=== PATIENT | female | born 1995 | race Caucasian/White ===

== ENCOUNTER 2021-06-30 16:32 | Emergency (ER) | payer OTHER ==
[~2021-06-30] VITALS: Ht 160 cm; Wt 75.0 kg
[2021-06-30 16:44] VITALS: TEMP 97.2
[2021-06-30] MEDS ORDERED: WELLBUTRIN XL150 MG PO (17:27)
[2021-06-30] MEDS ORDERED: PRENATAL TABLET PO (17:28)
[2021-06-30] MEDS ORDERED: ZOFRAN ODT8 MG PO (17:28)
[2021-06-30 17:37] LABS: BASO % 0.2 % (0.0-2.0); EOS % 0.4 % (0.0-4.0); GRAN # 6.1 K/mm3 (1.4-6.5); GRAN % 72.8 % (42.2-75.2); HEMATOCRIT 37.7 % (37.0-47.0); HEMOGLOBIN 13.3 g/dl (12.5-16.0); LYMPH # 1.9 K/mm3 (1.2-3.4); LYMPH % 22.4 % (20.0-51.0); MEAN CELL VOLUME 87 fl (80.0-100.0); MEAN CORPUSCULAR HEMOGLOBIN 31 pg (27-31); MEAN CORPUSCULAR HGB CONC 35 g/dl (33.0-37.0); MEAN PLATELET VOLUME 10.5 fl (7.4-10.4); MONO # 0.3 K/mm3 (0.1-0.6); PLATELET COUNT 188 K/mm3 (130-400); RED BLOOD COUNT 4.36 M/mm3 (4.10-5.30); REDCELL DISTRIBUTION WIDTH-CV 12.5 % (11.5-14.5)
[2021-06-30] MEDS ORDERED: CALCIUM 600MG+D1 TAB PO (17:39)
[2021-06-30 17:58] LABS: ALBUMIN 3.9 gm/dL (3.5-5.0); BILIRUBIN,TOTAL 0.5 mg/dL (0.2-1.2); CALCIUM 8.6 mg/dL (8.4-10.2); CREATININE, serum 0.64 mg/dL (0.57-1.11); POTASSIUM 3.6 mmol/L (3.5-4.5); TOTAL PROTEIN 6.8 gm/dL (6.2-8.1)
[2021-06-30 18:11] LABS: COLLECTION METHOD CLEAN CATCH
[2021-06-30 18:21] LABS: MUCOUS Present (NOT PRESENT); PH 6 (5-8); URINE APPEARANCE Hazy (CLEAR/HAZY); URINE BACTERIA Occasional /hpf (NONE SEEN); URINE BILIRUBIN Negative (NEGATIVE); URINE BLOOD Negative (NEGATIVE); URINE COLOR Yellow (YELLOW); URINE GLUCOSE Negative (NEGATIVE); URINE KETONE 2+ (NEGATIVE); URINE LEUKOCYTE ESTERASE Trace (NEGATIVE); URINE NITRATE Negative (NEGATIVE); URINE PROTEIN(semi-quant) Negative (NEGATIVE); URINE RBC 0-2 /hpf (0-2); URINE UROBILINOGEN Negative (NEGATIVE)
[2021-06-30 18:52] VITALS: BP 128/74; PULSE 83
== END 2021-06-30 18:51 | disposition home or self-care (01) ==
LOC: COL.ER 16:32
PROVIDERS: Nurse Practitioner Primary Care
DX: O21.9 Vomiting of pregnancy, unspecified (principal); Z3A.13 13 weeks gestation of pregnancy
CPT/HCPCS: J2550; J7030

== ENCOUNTER 2022-04-19 04:52 | Emergency (ER) | payer OTHER ==
[~2022-04-19] VITALS: Ht 160 cm; Wt 84.1 kg
[~2022-04-19 04:52] MED LIST: CALCIUM 600MG+D1 TAB PO; IBU800 M1 PO; NORMODYNE200 MG PO; PERCOCET 325 MG1 TA2 PO; PRENATAL TABLET PO; PRILOTC; TYLENOL 500MG500 MG PO; WELLBUTRIN XL150 MG PO; ZOFRAN ODT8 MG PO
[2022-04-19 06:32] LABS: STREP SCREEN NEGATIVE
[2022-04-19] MEDS ORDERED: AMOXICILLIN 8751 TAB PO (07:18)
[2022-04-19 07:34] VITALS: BP 119/90; PULSE 87; TEMP 98.8
== END 2022-04-19 07:37 | disposition home or self-care (01) ==
LOC: COL.ER 04:52
PROVIDERS: Emergency Medicine
DX: H66.92 Otitis media, unspecified, left ear (principal); J02.9 Acute pharyngitis, unspecified; M79.10 Myalgia, unspecified site; Z98.890 Other specified postprocedural states; Z20.822 Contact with and (suspected) exposure to COVID-19

== ENCOUNTER 2023-03-01 17:59 | Emergency (ER) | payer OTHER ==
[~2023-03-01] VITALS: Ht 157.5 cm; Wt 100.9 kg
[~2023-03-01 17:59] MED LIST changes: +AMOXICILLIN 8751 TAB PO; +ZOFRAN 4MG T4 MG/TAB PO
[2023-03-01 18:05] VITALS: TEMP 98.1
[2023-03-01 18:48] LABS: BASO # 0.1 K/mm3 (0.0-0.2); BASO % 0.6 % (0.0-2.0); EOS # 0.1 K/mm3 (0.0-0.7); EOS % 1.1 % (0.0-4.0); GRAN # 5.5 K/mm3 (1.4-6.5); GRAN % 61.1 % (42.2-75.2); HEMOGLOBIN 12.4 g/dl (12.5-16.0); LYMPH # 2.7 K/mm3 (1.2-3.4); LYMPH % 29.6 % (20.0-51.0); MEAN CELL VOLUME 92 fl (80.0-100.0); MEAN CORPUSCULAR HEMOGLOBIN 31 pg (27-31); MEAN CORPUSCULAR HGB CONC 34 g/dl (33.0-37.0); MEAN PLATELET VOLUME 9.8 fl (7.4-10.4); MONO # 0.6 K/mm3 (0.1-0.6); MONO % 6.9 % (1.7-9.3); PLATELET COUNT 179 K/mm3 (130-400); RED BLOOD COUNT 3.99 M/mm3 (4.10-5.30); REDCELL DISTRIBUTION WIDTH-CV 13.4 % (11.5-14.5)
[2023-03-01 18:50] LABS: HEMATOCRIT 36.5 % (37.0-47.0)
[2023-03-01 19:15] LABS: ALANINE AMINOTRANSFERASE 10 U/L (0-55); ALBUMIN 2.9 gm/dL (3.5-5.0); ALKALINE PHOSPHATASE 65 U/L (40-150); ANION GAP 11 mmol/L (7-16); AST,SGOT 16 U/L (5-34); BILIRUBIN,TOTAL 0.3 mg/dL (0.2-1.2); BLOOD UREA NITROGEN 7 mg/dL (7-19); CALCIUM 8.6 mg/dL (8.4-10.2); CARBON DIOXIDE 18 mmol/L (22-29); CHLORIDE 110 mmol/L (98-107); GLUCOSE 84 mg/dL (70-99); POTASSIUM 3.9 mmol/L (3.5-4.5); SODIUM 139 mmol/L (136-145); TOTAL PROTEIN 6.2 gm/dL (6.2-8.1)
[2023-03-01 19:24] LABS: TROPONIN-I < 0.010 ng/mL (0.00-0.033)
[2023-03-01 19:35] LABS: COLLECTION METHOD CLEAN CATCH
[2023-03-01 20:21] LABS: SQUAMOUS EPITHELIAL 0-2 /hpf (0-10); URINE APPEARANCE Clear (CLEAR/HAZY); URINE BACTERIA None Seen /hpf (NONE SEEN); URINE BLOOD Negative (NEGATIVE); URINE COLOR Yellow (YELLOW); URINE GLUCOSE Negative (NEGATIVE); URINE KETONE Negative (NEGATIVE); URINE NITRATE Negative (NEGATIVE); URINE PROTEIN(semi-quant) Negative (NEGATIVE); URINE RBC 0-2 /hpf (0-2); URINE UROBILINOGEN 0.2 E.U/dL (0.2-1.0)
[2023-03-01 20:33] VITALS: BP 158/88; PULSE 76
== END 2023-03-01 20:33 | disposition home or self-care (01) ==
LOC: COL.ER 17:59
PROVIDERS: Physician Assistant
DX: O16.2 Unspecified maternal hypertension, second trimester (principal); O26.892 Other specified pregnancy related conditions, second trimester; R00.2 Palpitations; Z3A.26 26 weeks gestation of pregnancy
CPT/HCPCS: J2405; J7030

== ENCOUNTER 2023-04-04 20:30 | Outpatient (CLI) | payer OTHER ==
[~2023-04-04] VITALS: Ht 160 cm; Wt 101.4 kg
--- NOTE | 2023-04-04 19:30 | NUR ---
G2L1 at 31 weeks and 4 days arrives to unit ambulatory after falling at home and hitting her head. Pt reports falling straight backwards and hitting her head hard on her hardwood floors. Pt appears to be in pain and is guarding her eyes. Pt denies contractions, loss of fluid, or vaginal bleeding. Reports movement but wants to ensure baby is ok after fall. Clean gown on, bed in low and locked position, call light within reach. US and toco explained and applied. Admission assessment started. Vitals obtained.
[2023-04-04 20:00] VITALS: BP 144/89; PULSE 87
[~2023-04-04 20:30] MED LIST changes: +LR 1,000 ML IV PRN
[2023-04-04 20:40] VITALS: BP 127/72; PULSE 86; TEMP 98.2
--- NOTE | 2023-04-04 21:00 | NUR ---
Category 1 FHR tracing obtained. No contractions on monitor and patient reports no abdominal pain. Positive movement. Recommended patient return to ER to be evaluated. Discharge instructions reviewed, pt verbalized understanding.
== END 2023-04-04 21:00 | disposition home or self-care (01) ==
LOC: LDRO 20:30 → LDR 20:30 → LDRO 21:00
DX: O9A.213 Injury, poisoning and certain other consequences of external causes complicating pregnancy, third trimester (principal); Z3A.31 31 weeks gestation of pregnancy
CPT/HCPCS: OP

== ENCOUNTER 2023-04-11 07:57 | Emergency (ER) | payer OTHER ==
[~2023-04-11] VITALS: Ht 160 cm; Wt 104.5 kg
[~2023-04-11 07:57] MED LIST changes: -LR 1,000 ML IV PRN
[2023-04-11] MEDS ORDERED: NS 1,000 ML IV ONE ×2 (08:30→10:00)
[2023-04-11] MEDS ORDERED: Ondansetron 4 MG/2 ML VIAL IV ONE (08:30)
[2023-04-11 08:35] LABS: BASO # 0.1 K/mm3 (0.0-0.2); BASO % 0.3 % (0.0-2.0); EOS # 0.1 K/mm3 (0.0-0.7); EOS % 0.3 % (0.0-4.0); GRAN # 15.7 K/mm3 (1.4-6.5); GRAN % 86.1 % (42.2-75.2); HEMATOCRIT 38.6 % (37.0-47.0); HEMOGLOBIN 13.4 g/dl (12.5-16.0); LYMPH # 1.5 K/mm3 (1.2-3.4); LYMPH % 8.3 % (20.0-51.0); MEAN CELL VOLUME 90 fl (80.0-100.0); MEAN CORPUSCULAR HEMOGLOBIN 31 pg (27-31); MEAN CORPUSCULAR HGB CONC 35 g/dl (33.0-37.0); MEAN PLATELET VOLUME 9.9 fl (7.4-10.4); MONO # 0.8 K/mm3 (0.1-0.6); MONO % 4.4 % (1.7-9.3); PLATELET COUNT 169 K/mm3 (130-400); RED BLOOD COUNT 4.28 M/mm3 (4.10-5.30); REDCELL DISTRIBUTION WIDTH-CV 13.6 % (11.5-14.5)
[2023-04-11 08:43] LABS: COLLECTION METHOD CLEAN CATCH
[2023-04-11 08:50] LABS: BILIRUBIN,TOTAL 0.5 mg/dL (0.2-1.2); CALCIUM 8.8 mg/dL (8.4-10.2); CREATININE, serum 0.65 mg/dL (0.57-1.11); POTASSIUM 3.8 mmol/L (3.5-4.5)
[2023-04-11 09:07] LABS: URINE COLOR Yellow (YELLOW)
[2023-04-11 09:08] LABS: PH 6.5 (5.0-8.5); URINE APPEARANCE Hazy (CLEAR/HAZY); URINE BLOOD Negative (NEGATIVE); URINE GLUCOSE Negative (NEGATIVE); URINE KETONE 4+ (NEGATIVE); URINE NITRATE Negative (NEGATIVE); URINE PROTEIN(semi-quant) 1+ (NEGATIVE); URINE RBC None Seen /hpf (0-2); URINE UROBILINOGEN 0.2 E.U/dL (0.2-1.0)
[2023-04-11 09:09] LABS: URINE BACTERIA Moderate /hpf (NONE SEEN)
[2023-04-11 10:00] VITALS: TEMP 99.9
[2023-04-11] MEDS ORDERED: Acetaminophen 500 MG TAB PO ONE (10:00)
[2023-04-11] MEDS ORDERED: Amoxicillin/Clavulanate K+ 875/125 MG TAB PO ONE (10:00)
[2023-04-11 10:38] LABS: INR 1.1 (0.8-3.0); PROTHROMBIN TIME 12.1 SECONDS (9.7-12.8)
[2023-04-11 10:39] LABS: PARTIAL THROMBOPLASTIN TIME 29.3 SECONDS (26.0-37.0)
--- NOTE | 2023-04-11 11:38 | NUR ---
PT TO ER FOR N/V. NST DONE FROM 1010 TO 1035. PT DID NOT HAVE TWO ACCELS IN FHT IN A 20 STRIP. REPEATED NST AT 1109, GAVE PT APPLE JUICE AND BEGAN PLAYING MUSIC TO ELISIT RESPONCE FROM FETUS. FETUS RESPONDED WITH MULTIPLE ACCELS.
[2023-04-11 12:15] VITALS: BP 129/74; PULSE 113
[2023-04-11] MEDS ORDERED: AMOXICILLIN 8751 TAB PO (12:18)
== END 2023-04-11 12:29 | disposition home or self-care (01) ==
LOC: COL.ER 07:57
PROVIDERS: Emergency Medicine
DX: O9A.213 Injury, poisoning and certain other consequences of external causes complicating pregnancy, third trimester (principal); R51.9 Headache, unspecified; O99.513 Diseases of the respiratory system complicating pregnancy, third trimester; J32.9 Chronic sinusitis, unspecified; O21.9 Vomiting of pregnancy, unspecified; O99.113 Other diseases of the blood and blood-forming organs and certain disorders involving the immune mechanism complicating pregnancy, third trimester; R79.1 Abnormal coagulation profile; Z3A.32 32 weeks gestation of pregnancy; W18.30XA Fall on same level, unspecified, initial encounter; W22.8XXA Striking against or struck by other objects, initial encounter
CPT/HCPCS: J2405; J7030

== ENCOUNTER 2023-05-30 05:26 | Inpatient (IN) | payer OTHER ==
[2023-05-30] VITALS (20 sets, daily range): BP systolic 90–135; BP diastolic 46–626; PULSE 85–99; TEMP 97.9–98.6
[~2023-05-30] VITALS: Ht 158.8 cm; Wt 107.8 kg
[~2023-05-30 05:26] MED LIST changes: +LR 1,000 ML IV SCH
--- NOTE | 2023-05-30 05:30 | NUR ---
PATIENT AMBULATORY TO UNIT WITH SPOUSE. PATIENT CHANGED INTO HOSPITAL GOWN. EFMX2 APPLIED. PATIENT DENIES LEAKING OF FLUID, VAGINAL BLEEDING OR CONTRACTIONS.
[2023-05-30] MEDS ORDERED: diphenhydrAMINE 50 MG/ML 1 ML VIAL IV PRN (06:15)
[2023-05-30] MEDS ORDERED: LR 1,000 ML IV SCH (06:15)
[2023-05-30] MEDS ORDERED: Ondansetron 4 MG/2 ML VIAL IV PRN ×2 (06:15→08:30)
[2023-05-30] MEDS ORDERED: Meperidine 50 MG/ML 1 ML VIAL IV PRN (06:15)
--- NOTE | 2023-05-30 06:15 | NUR ---
THIS RN TOOK OVER PREOP FROM MIRZA Holley RN.
[2023-05-30 06:25] LABS: BASO # 0.1 K/mm3 (0.0-0.2); BASO % 0.6 % (0.0-2.0); EOS # 0.1 K/mm3 (0.0-0.7); EOS % 1.3 % (0.0-4.0); GRAN # 6.5 K/mm3 (1.4-6.5); GRAN % 59.7 % (42.2-75.2); HEMOGLOBIN 14.2 g/dl (12.5-16.0); LYMPH # 3.5 K/mm3 (1.2-3.4); MEAN CELL VOLUME 89 fl (80.0-100.0); MEAN CORPUSCULAR HEMOGLOBIN 32 pg (27-31); MEAN CORPUSCULAR HGB CONC 36 g/dl (33.0-37.0); MEAN PLATELET VOLUME 11.3 fl (7.4-10.4); MONO # 0.6 K/mm3 (0.1-0.6); MONO % 5.8 % (1.7-9.3); PLATELET COUNT 202 K/mm3 (130-400); RED BLOOD COUNT 4.51 M/mm3 (4.10-5.30); REDCELL DISTRIBUTION WIDTH-CV 13.3 % (11.5-14.5)
[2023-05-30] MEDS ORDERED: ZOVIRAX400 MG PO (06:29)
[2023-05-30] MEDS ORDERED: PROTONIX20 MG PO (06:29)
[2023-05-30] MEDS ORDERED: NS 30 ML IV ONE (07:04)
[2023-05-30] MEDS ORDERED: Oxytocin 10 UNITS/ML VIAL ONE (07:04)
[2023-05-30] MEDS ORDERED: dexAMETHasone 10 MG/ML VIAL ONE (07:05)
[2023-05-30] MEDS ORDERED: Phenylephrine 10 MG/ML VIAL ONE (07:05)
[2023-05-30] MEDS ORDERED: Ondansetron 4 MG/2 ML VIAL ONE (07:05)
[2023-05-30] MEDS ORDERED: Ketorolac 30 MG/ML VIAL ONE (07:05)
[2023-05-30] MEDS ORDERED: EPINEPHrine 1 MG/1 ML Ampule ONE (07:56)
[2023-05-30] MEDS ORDERED: Loratadine 10 MG TAB PO PRN (08:30)
[2023-05-30] MEDS ORDERED: Magnes Hydrox (MOM) 80 MG/ML 30 ML CUP PO PRN (08:30)
[2023-05-30] MEDS ORDERED: Naloxone 0.4 MG/ML VIAL IV PRN (08:30)
[2023-05-30] MEDS ORDERED: Measles/Mumps/Rubella Virus Vaccine Live w Diluent 0.5 ML VIAL SQ SCH (08:30)
[2023-05-30] MEDS ORDERED: LR 1,000 ML IV PRN (08:30)
[2023-05-30] MEDS ORDERED: Acetaminophen 500 MG TAB PO SCH (08:30)
--- NOTE | 2023-05-30 11:45 | NUR ---
THIS RN TOOK REPORT FROM CAM TRAVIS RN
[2023-05-30] MEDS ORDERED: oxyCODONE 5 MG TAB PO PRN (12:00)
--- NOTE | 2023-05-30 13:20 | NUR ---
THIS RN GIVES REPORT BACK TO CAM TRAVIS RN
[2023-05-30] MEDS ORDERED: Ibuprofen 800 MG TAB PO SCH (14:26)
[2023-05-30] MEDS ORDERED: Sennosides/Docusate 8.6-50 MG TAB PO SCH (17:00)
[2023-05-30] MEDS ORDERED: traZODone 50 MG TAB PO PRN (21:00)
[2023-05-31 04:00] VITALS: BP 119/76; PULSE 87; TEMP 97.8
[2023-05-31 08:00] VITALS: BP 135/78; PULSE 92; TEMP 97.8
[2023-05-31 12:00] VITALS: BP 126/84; PULSE 82; TEMP 97.5
--- NOTE | 2023-05-31 13:39 | NUR ---
Initial visit; Patient thanked Supervisor [employer] for offering congratulations and God's blessings for the of her son. Grandma was also present and smiling. Supervisor [employer] thanked mom for choosing our hospital to which patient stated that she had had a very good experience.
[2023-05-31 16:55] VITALS: BP 129/84; PULSE 92; TEMP 97.5
[2023-05-31 20:43] VITALS: BP 120/75; PULSE 81; TEMP 98.4
[2023-06-01 07:15] VITALS: BP 131/83; PULSE 93; TEMP 97.6
--- NOTE | 2023-06-01 07:15 | NUR ---
Rests in bed, alert. Ibuprofen 800 mg given as ordered. Denies any other needs at this time.
[2023-06-01] MEDS ORDERED: ROXICODONE 55 MG/TAB PO (07:20)
--- NOTE | 2023-06-01 12:15 | NUR ---
Rests in bed, alert. Eating noon meal. Discharge instructions given, verbalizes understanding.
== END 2023-06-01 12:30 | disposition home or self-care (01) | DRG 787 ==
LOC: OB 05:26
PROVIDERS: ADMIT Student in an Organized Health Care Education/Training Program
PROC: 10D00Z1 Extraction of Products of Conception, Low, Open Approach (ICD-10-PCS; principal; 2023-05-30)
DX: O34.211 Maternal care for low transverse scar from previous cesarean delivery (principal); B00.89 Other herpesviral infection; O33.0 Maternal care for disproportion due to deformity of maternal pelvic bones; O98.52 Other viral diseases complicating childbirth; O99.344 Other mental disorders complicating childbirth; O99.284 Endocrine, nutritional and metabolic diseases complicating childbirth; E28.2 Polycystic ovarian syndrome; H66.90 Otitis media, unspecified, unspecified ear; O99.214 Obesity complicating childbirth; O99.892 Other specified diseases and conditions complicating childbirth; F32.A Depression, unspecified; K21.9 Gastro-esophageal reflux disease without esophagitis; O99.62 Diseases of the digestive system complicating childbirth; O13.4 Gestational [pregnancy-induced] hypertension without significant proteinuria, complicating childbirth; Z3A.39 39 weeks gestation of pregnancy; Z37.0 Single live birth; Z23 Encounter for immunization
CPT/HCPCS: J0171; J0665; J0690; J1100; J1885; J2371; J2405; J2590; J7120

== ENCOUNTER → 2023-10-03 | Outpatient (CLI) | payer OTHER ==
[~2023-10-03] MED LIST changes: -LR 1,000 ML IV SCH; +PROTONIX20 MG PO; +ROXICODONE 55 MG/TAB PO; +ZOVIRAX400 MG PO
== END ==
LOC: MHCPAIN 10:54
DX: M26.629 Arthralgia of temporomandibular joint, unspecified side (principal)
CPT/HCPCS: G0463

== ENCOUNTER → 2023-10-09 | Outpatient (CLI) | payer OTHER | LOC: MHCPAIN 09:20 | DX: M26.623 Arthralgia of bilateral temporomandibular joint (principal) | CPT/HCPCS: J0585 ==

== ENCOUNTER 2023-10-27 23:53 | Emergency (ER) | payer OTHER ==
[~2023-10-27] VITALS: Ht 160 cm; Wt 88.6 kg
[2023-10-28] MEDS ORDERED: NS 1,000 ML IV ONE (00:15)
[2023-10-28 00:29] LABS: COLLECTION METHOD CLEAN CATCH
[2023-10-28 00:37] LABS: PH 6.5 (5.0-8.5); URINE APPEARANCE CLEAR (CLEAR/HAZY); URINE BLOOD NEGATIVE (NEGATIVE); URINE COLOR YELLOW (YELLOW); URINE GLUCOSE NEGATIVE (NEGATIVE); URINE KETONE TRACE (NEGATIVE); URINE NITRATE NEGATIVE (NEGATIVE); URINE PROTEIN(semi-quant) NEGATIVE (NEGATIVE); URINE UROBILINOGEN 0.2 E.U/dL (0.2-1.0)
[2023-10-28 00:43] LABS: BASO % 0.5 % (0.0-2.0); EOS # 0.1 K/mm3 (0.0-0.7); EOS % 1.6 % (0.0-4.0); GRAN # 2.8 K/mm3 (1.4-6.5); GRAN % 48.1 % (42.2-75.2); HEMATOCRIT 39.4 % (37.0-47.0); HEMOGLOBIN 13.7 g/dl (12.5-16.0); LYMPH # 2.4 K/mm3 (1.2-3.4); MEAN CELL VOLUME 90 fl (80.0-100.0); MEAN CORPUSCULAR HEMOGLOBIN 31 pg (27-31); MEAN CORPUSCULAR HGB CONC 35 g/dl (33.0-37.0); MEAN PLATELET VOLUME 9.9 fl (7.4-10.4); MONO # 0.4 K/mm3 (0.1-0.6); MONO % 7.6 % (1.7-9.3); PLATELET COUNT 190 K/mm3 (130-400); REDCELL DISTRIBUTION WIDTH-CV 11.9 % (11.5-14.5)
[2023-10-28] MEDS ORDERED: Ketorolac 30 MG/ML VIAL IV ONE (00:45)
[2023-10-28] MEDS ORDERED: Ondansetron 4 MG/2 ML VIAL IV ONE (00:45)
[2023-10-28 00:50] LABS: ALBUMIN 4.3 g/dL (3.5-5.0); BILIRUBIN,TOTAL 0.4 mg/dL (0.2-1.2); CALCIUM 9.1 mg/dL (8.4-10.2); CREATININE, serum 0.82 mg/dL (0.57-1.11); POTASSIUM 3.8 mEq/L (3.5-4.5); TOTAL PROTEIN 7.1 g/dl (6.2-8.1)
[2023-10-28] MEDS ORDERED: diphenhydrAMINE 50 MG/ML 1 ML VIAL IV ONE (01:00)
[2023-10-28 02:20] VITALS: TEMP 99.1
[2023-10-28] MEDS ORDERED: Acetaminophen 500 MG TAB PO ONE (02:30)
[2023-10-28] MEDS ORDERED: droPERidol 2.5 MG/ML 2 ML VIAL IV ONE (02:30)
[2023-10-28 02:47] VITALS: BP 109/65; PULSE 88
== END 2023-10-28 02:47 | disposition home or self-care (01) ==
LOC: COL.ER 23:53
PROVIDERS: Nurse Practitioner Primary Care
DX: B34.9 Viral infection, unspecified (principal); R50.9 Fever, unspecified; R10.13 Epigastric pain; R11.0 Nausea
CPT/HCPCS: J1200; J1790; J1885; J2405; J7030

== ENCOUNTER → 2023-11-21 | Outpatient (CLI) | payer OTHER | LOC: MHCPAIN 14:02 | DX: M26.621 Arthralgia of right temporomandibular joint (principal); M26.622 Arthralgia of left temporomandibular joint; M54.81 Occipital neuralgia | CPT/HCPCS: G0463 ==